=== PATIENT | female | born 2000 | race African-American/Black ===

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

== ENCOUNTER 2019-03-27 23:34 | Emergency (ER) | payer MEDICAID ==
[~2019-03-27] VITALS: Ht 170.2 cm; Wt 67.0 kg
[2019-03-27 23:58] VITALS: BP 127/81
== END 2019-03-28 10:00 | disposition left against medical advice (07) ==
LOC: ER 03-28 09:25
DX: J02.9 Acute pharyngitis, unspecified (principal); Z53.21 Procedure and treatment not carried out due to patient leaving prior to being seen by health care provider